=== PATIENT | female | born 1960 | race African-American/Black ===

== ENCOUNTER 2021-05-16 04:14 | Emergency (ER) | payer SELFPAY ==
[~2021-05-16] VITALS: Ht 172.7 cm; Wt 83.0 kg
[2021-05-16 07:02] LABS: BASOPHILS % 0.3 % (0.0-2.0); EOSINOPHILS % 5.2 % (0.0-5.0); HEMATOCRIT. 35.4 % (36.0-48.0); HEMOGLOBIN. 11.9 g/dL (12.0-16.0); LYMPHOCYTES % 30.5 % (20.0-50.0); MEAN CORPUSCULAR VOLUME 89.6 fL (81.0-99.0); MEAN PLATELET VOLUME 7.2 fl (7.4-10.4); MONOCYTES % 12.3 % (2.0-8.0); NEUTROPHILS % 51.7 % (40.0-76.0); PLATELET 207 x1000/uL (130-400); RED BLOOD CELL COUNT 3.95 mill/uL (4.2-5.4); RED CELL DISTRIBUTION WIDTH 12.1 % (11.6-14.6)
[2021-05-16 07:07] LABS: CHLORIDE 108 mEq/L (98-107)
[2021-05-16 07:12] LABS: ETHANOL BLOOD < 10 mg/dL
[2021-05-16 07:28] LABS: VALPROIC ACID < 3.0 ug/mL (50-100)
[2021-05-16] MEDS ORDERED: KEPP500 MT (11:38)
[2021-05-16 13:54] VITALS: BP 121/68
== END 2021-05-16 14:00 | disposition home or self-care (01) ==
LOC: ER 04:58 → EDBD 04:58 → ER 14:00
DX: R56.9 Unspecified convulsions (principal)
CPT/HCPCS: 36415; 70450; 80053; 80165; 80185; 80320; 85025; 93005; 99291; C1893; Z7610; G0480

== ENCOUNTER 2022-07-30 03:47 | Emergency (ER) | payer MEDICARE, OTHER ==
[~2022-07-30] VITALS: Ht 165.1 cm; Wt 68.0 kg
[~2022-07-30 03:47] MED LIST: KEPP500 MT
[2022-07-30 03:52] VITALS: BP 110/60
== END 2022-07-30 09:13 | disposition left against medical advice (07) ==
LOC: ER 03:47
DX: Z53.21 Procedure and treatment not carried out due to patient leaving prior to being seen by health care provider (principal); R10.9 Unspecified abdominal pain